=== PATIENT | male | born 1985 | race Caucasian/White ===

== ENCOUNTER 2019-11-09 14:25 | Emergency (ER) | payer SELFPAY ==
[~2019-11-09] VITALS: Ht 188 cm; Wt 91.0 kg
[2019-11-09] MEDS ORDERED: ONDANSETRON HCL 4MG/2ML INJ IV STA (14:50)
[2019-11-09] MEDS ORDERED: LORAZEPAM 2MG/ML CPJ IV STA (14:50)
[2019-11-09] MEDS ORDERED: SODIUM CHLORIDE 0.9% 1,000 ML IV ONE (14:50)
[2019-11-09] MEDS ORDERED: IBUPROFEN 600MG TABLET PO ONE (15:30)
[2019-11-09 16:00] VITALS: BP 136/96
[2019-11-09 17:10] LABS: BASOPHILS % 0.9 % (0.0-2.0); EOSINOPHILS % 1.4 % (0.0-5.0); HEMATOCRIT. 40.7 % (42.0-52.0); HEMOGLOBIN. 13.6 g/dL (14.0-18.0); LYMPHOCYTES % 21.2 % (20.0-50.0); MEAN CORPUSCULAR HEMOGLOBIN 26.5 pg (28.0-32.0); MEAN CORPUSCULAR VOLUME 79.4 fL (80.0-94.0); MEAN PLATELET VOLUME 7.7 fl (7.4-10.4); MONOCYTES % 12.9 % (2.0-8.0); NEUTROPHILS % 63.6 % (40.0-76.0); PLATELET 266 x1000/uL (130-400); RED BLOOD CELL COUNT 5.13 mill/uL (4.7-6.1); RED CELL DISTRIBUTION WIDTH 13.6 % (11.6-14.6)
[2019-11-09 17:17] LABS: CHLORIDE 107 mEq/L (98-107)
[2019-11-09 17:24] LABS: ETHANOL BLOOD < 10 mg/dL
== END 2019-11-09 17:31 | disposition left against medical advice (07) ==
LOC: ER 15:12
DX: T43.621A Poisoning by amphetamines, accidental (unintentional), initial encounter (principal); F12.10 Cannabis abuse, uncomplicated; Y92.89 Other specified places as the place of occurrence of the external cause
CPT/HCPCS: 36415; 80053; 80307; 80320; 80329; 85025; 93005; 96374; 96375; 99284; J2060; J2405; J7030; Z7610; G0480

== ENCOUNTER 2019-12-01 09:23 | Emergency (ER) | payer MEDICAID ==
[~2019-12-01] VITALS: Ht 185.4 cm; Wt 85.0 kg
[2019-12-01 09:24] VITALS: BP 149/90
[2019-12-01] MEDS ORDERED: PREDNISONE 20MG TABLET PO STA (09:37)
== END 2019-12-01 10:11 | disposition left against medical advice (07) ==
LOC: ER 09:34
DX: J45.901 Unspecified asthma with (acute) exacerbation (principal); F12.10 Cannabis abuse, uncomplicated; F15.10 Other stimulant abuse, uncomplicated
CPT/HCPCS: 99283

== ENCOUNTER 2020-02-25 18:03 | Emergency (ER) | payer MEDICAID ==
[~2020-02-25] VITALS: Ht 182.9 cm; Wt 73.0 kg
[2020-02-25] MEDS ORDERED: ACETAMINOPHEN 500MG TABLET PO ONE (19:15)
[2020-02-25 19:45] VITALS: BP 132/87
== END 2020-02-25 19:58 | disposition home or self-care (01) ==
LOC: ER 18:03
DX: B34.9 Viral infection, unspecified (principal); Z87.891 Personal history of nicotine dependence; F12.10 Cannabis abuse, uncomplicated; F15.10 Other stimulant abuse, uncomplicated; J45.909 Unspecified asthma, uncomplicated; Z98.890 Other specified postprocedural states; Z91.013 Allergy to seafood
CPT/HCPCS: 71045; 93005; 99283

== ENCOUNTER 2020-03-28 14:45 | Emergency (ER) | payer MEDICAID ==
[~2020-03-28] VITALS: Ht 177.8 cm; Wt 77.2 kg
[2020-03-28] MEDS ORDERED: ZYPREXA (14:47)
[2020-03-28 15:27] LABS: CLARITY URINE CLEAR (CLEAR); COLOR URINE YELLOW (YELLOW); KETONES URINE NEGATIVE (NEGATIVE); LEUKOCYTE ESTERASE URINE NEGATIVE (NEGATIVE); NITRITE URINE NEGATIVE (NEGATIVE); OCCULT BLOOD URINE TRACE (NEGATIVE); PROTEIN URINE NEGATIVE (NEGATIVE); SPECIFIC GRAVITY URINE 1.024 (1.005-1.030); UROBILINOGEN URINE 0.2 E.U./dL (0.2-1.0)
[2020-03-28 15:38] LABS: *AMPHETAMINES SCREEN URINE PRESUMTIVE POSITIVE (NEGATIVE); *BARBITURATES SCREEN URINE NEGATIVE (NEGATIVE); *BENZODIAZEPINES SCREEN URINE NEGATIVE (NEGATIVE); *COCAINE SCREEN URINE NEGATIVE (NEGATIVE)
[2020-03-28 15:39] LABS: CANNABINOID URINE SCREEN NEGATIVE (NEGATIVE); METHADONE URINE SCREEN NEGATIVE (NEGATIVE); OPIATES URINE SCREEN NEGATIVE (NEGATIVE); PHENCYCLIDINE URINE SCREEN NEGATIVE (NEGATIVE)
[2020-03-28 15:45] LABS: HEMOGLOBIN. 12.4 g/dL (14.0-18.0); MEAN CORPUSCULAR HEMOGLOBIN 27.1 pg (28.0-32.0); MEAN CORPUSCULAR VOLUME 78.7 fL (80.0-94.0); PLATELET 243 x1000/uL (130-400); RED BLOOD CELL COUNT 4.58 mill/uL (4.7-6.1); RED CELL DISTRIBUTION WIDTH 13.8 % (11.6-14.6)
[2020-03-28 15:52] LABS: CHLORIDE 105 mEq/L (98-107)
[2020-03-28 15:58] LABS: ETHANOL BLOOD < 10 mg/dL
[2020-03-28 16:18] LABS: PLATELET ESTIMATE NORMAL
[2020-03-28] MEDS ORDERED: HALOPERIDOL LACTATE 5MG/ML VIAL IM ONE (18:45)
[2020-03-29 08:00] VITALS: BP 110/69
== END 2020-03-29 11:09 | disposition home or self-care (01) ==
LOC: ER 14:45
DX: R45.851 Suicidal ideations (principal); F15.129 Other stimulant abuse with intoxication, unspecified; F17.200 Nicotine dependence, unspecified, uncomplicated; J45.909 Unspecified asthma, uncomplicated; Z91.013 Allergy to seafood; Z98.890 Other specified postprocedural states
CPT/HCPCS: 36415; 80053; 80305; 80307; 80320; 80329; 81003; 85025; 96372; 99285; J1630; G0480